=== PATIENT | female | born 2000 | race Caucasian/White ===

== ENCOUNTER 2018-03-26 22:04 | Inpatient (IN) ==
[2018-03-26] MEDS ORDERED: TORADOL 30 MG VIAL ONE (23:34)
[2018-03-26] MEDS ORDERED: TORADOL 30 MG VIAL IVP ONE (23:35)
[2018-03-26] MEDS ORDERED: ZOFRAN INJ 4 MG VIAL IVP ONE (23:38)
--- NOTE | 2018-03-26 23:42 | DR.GENAD ---
HPI Time Seen Time Seen by Provider: 03/26/18 23:27 PCP Primary Care Physician: NILMA Complaint/Symptoms Chief Complaint Doctors Comments: Patient had a cholecystectomy 20 days ago in [place], had follow up with surgeon secondary to abdominal pain but f/o was negative. She admits to nausea and abdominal pain since. Pain level 10/10, sharp. Chief Complaint:: ABD PAIN , PT 3 WEEKS POST OP GALLBLADDER REMOVAL Self Treatment fo Chief Complaint: NONE Source History Provided: Patient Mode of Arrival Mode of Arrival: Ambulatory Timing Onset of Chief Complaint: 03/26/18 PMH PMH Past Medical History: No Past Surgical History: Yes Surgical History: and Cholecystectomy Past Surgical History Comment: RIGHT OVARY Family History History of Family Medical Conditions: No Social History Does patient currently use any type of tobacco product: Yes Have you used tobacco products in the last 12 months: Yes Type of Tobacco Use: Cigarettes Alcohol Use: None Do you use any recreational Drugs:: No Lives With: Mom Lives Where: Home infectious screening In the last 2 months have you had wt loss of >10#?: NO Have you had fever, night sweats or hemotysis?: No Have you traveled outside the country in the last 6 months?: No Isolation: Standard PE Vital Signs Vitals: Temperature 98.4 F Pulse Rate [Apical] 103 Pulse Rate 120 Respiratory Rate 18 Blood Pressure [Right Arm] 129/71 Blood Pressure [Left Arm] 127/72 Blood Pressure 137/79 O2 Sat by Pulse Oximetry 93 General General Appearance: Alert and In Distress Eyes Eye exam: Normal Appearance, PERRL and EOMI ENT ENT Exam: Normal Exam, Normal Oropharynx and Mucous Membranes Moist External Ear Exam: Normal External Inspection TM/Canal Exam: Bilateral: Normal Nose Exam: Normal Nose Exam Throat Exam: Normal Inspection, Tonsillar Erythema, Tonsillomegaly, Tonsillar Exudate, R Peritonsillar Mass, L Peritonsillar Mass, Muffled Voice and Other Neck Neck Exam: Normal Inspection Chest Chest Inspection: Normal Inspection Respiratory Respiratory Exam: Normal Lung Sounds Bilat Respiratory Exam: Bilateral: Clear to Auscultation and Bilateral: Rhonchi Cardiovascular Cardiovascular Exam: Tachycardia Abdominal Exam Abdominal Exam: Normal Inspection, Soft, Tenderness and Hyperactive Bowel Sounds Abdominal Tenderness: LLQ, Epigastrium and Diffuse Extremities Extremities Exam: Normal Inspection and Full ROM Back Back Exam: Normal Inspection Neurologic Neurological Exam: Alert, Oriented X3, CN II-XII Intact and Normal Gait Psychiatric Psychiatric Exam: Normal Affect and Anxious Skin Skin Exam: Warm and Dry COURSE Consultation Called: 02:30 Consultation Comments: Dr. Pham agreed to admit for further evaluation and treatment ROR Labs Reviewed Laboratory Results Reviewed?: Yes Result Diagrams: 03/28/18 06:03 03/28/18 06:03 Laboratory: 03/27/18 15:28 Aspirate Gram Stain - Final WBC 10.4 X10^3/uL (3.6-10.0) H 03/28/18 06:03 RBC 3.00 X10^6/uL (3.5-5.4) L 03/28/18 06:03 Hgb 7.7 g/dL (12.0-16.0) L 03/28/18 06:03 Hct 23.1 % (36.0-47.0) L 03/28/18 06:03 MCV 76.9 fL (80.0-100.0) L 03/28/18 06:03 MCH 25.7 pg (27.0-34.0) L 03/28/18 06:03 MCHC 33.4 g/dL (33.0-35.0) 03/28/18 06:03 RDW 17.6 % (11.6-16.5) H 03/28/18 06:03 Plt Count 391 X10^3/uL (150.0-450.0) 03/28/18 06:03 Plt Count Comment Adequate (ADEQUATE) 03/28/18 06:03 MPV 9.6 fL (7.4-11.0) 03/28/18 06:03 Neut % (Auto) 61.6 % (42.0-75.0) 03/28/18 06:03 Lymph % (Auto) 27.6 % (21.0-51.0) 03/28/18 06:03 [place] % (Auto) 7.2 % (0.0-13.0) 03/28/18 06:03 Eos % (Auto) 2.9 % (0.9-2.9) 03/28/18 06:03 Baso % (Auto) 0.7 % (0.2-1.0) 03/28/18 06:03 Neut # (Auto) 6.4 x10^3/uL (2.2-4.8) H 03/28/18 06:03 Lymph # (Auto) 2.9 X10^3/uL (1.3-2.9) 03/28/18 06:03 [place] # (Auto) 0.7 x10^3/uL (0.3-0.8) 03/28/18 06:03 Eos # (Auto) 0.3 x10^3/uL (0.0-0.2) H 03/28/18 06:03 Baso # (Auto) 0.1 X10^3/uL (0.0-0.1) 03/28/18 06:03 Absolute Nucleated RBC 0.0 /100WBC 03/28/18 06:03 Plt Morphology Comment Normal (NORMAL) 03/28/18 06:03 RBC Morphology Abnormal (NORMAL) A 03/28/18 06:03 Hypochromasia Slight A 03/28/18 06:03 Microcytosis Slight A 03/28/18 06:03 Sodium 139 mmol/L (136-145) 03/28/18 06:03 Corrected Sodium TNP 03/28/18 06:03 Potassium 3.5 mmol/L (3.5-5.1) 03/28/18 06:03 Chloride 105 mmol/L (98-107) 03/28/18 06:03 Carbon Dioxide 26.3 mmol/L (21-32) 03/28/18 06:03 BUN 7 mg/dL (7-18) 03/28/18 06:03 Creatinine 0.51 mg/dL (0.55-1.02) L 03/28/18 06:03 Est GFR (MDRD) Af Amer > 60 (>60) 03/28/18 06:03 Est GFR (MDRD) Non-Af > 60 (>60) 03/28/18 06:03 Glucose 87 mg/dL (65-99) 03/28/18 06:03 Calcium 8.1 mg/dL (8.5-10.1) L 03/28/18 06:03 Corrected Calcium 9.8 mg/dL (8.5-10.1) 03/28/18 06:03 Total Bilirubin 0.50 mg/dL (0.2-1.0) 03/28/18 06:03 AST 25 Units/L (15-37) 03/28/18 06:03 ALT 23 Units/L (12-78) 03/28/18 06:03 Alkaline Phosphatase 306 Units/L (45-150) H 03/28/18 06:03 C-Reactive Protein > 250.00 mg/L (0-3.0) H 03/26/18 23:42 Total Protein 5.9 g/dL (6.4-8.2) L 03/28/18 06:03 Albumin 1.9 g/dL (3.4-5.0) L 03/28/18 06:03 Globulin 4.0 g/dL (2.5-4.5) 03/28/18 06:03 Albumin/Globulin Ratio 0.5 Ratio (1.1-2.1) L 03/28/18 06:03 Amylase 22 Units/L (25-115) L 03/26/18 23:42 Lipase 64 Units/L (73-393) L 03/26/18 23:42 Other Results Comments: CT Abd/Pel:Multilocal low density loculated collections around the liver and gallbladder fossa with history of recent cholecystectomy are concerning for biloma, abscess and /or bile leak. 2.More hazy appearnace to the peritoneum M. omentum and non organized hyperdense fluid in in the pelvis could also reflect bile leak or hemorrhage. Active bleeding into the abdomen/ peritoneal cavity is possible. Follow up to exclude underlying neoplasia or ovarian source of hemorrhage is recommended as well. XRAY XRAY Findings: See above
[2018-03-26] MEDS ORDERED: NS 1000 ML 1,000 ML IV SCH (23:45)
[2018-03-26] MEDS ORDERED: ZOFRAN INJ 4 MG VIAL ONE (23:55)
[2018-03-26 23:56] LABS: BASOPHILS # (AUTO) 0.1 X10^3/uL (0.0-0.1); BASOPHILS % (AUTO) 0.5 % (0.2-1.0); EOSINOPHILS # (AUTO) 0.1 x10^3/uL (0.0-0.2); EOSINOPHILS % (AUTO) 0.5 % (0.9-2.9); HEMATOCRIT 29.2 % (36.0-47.0); HEMOGLOBIN 9.7 g/dL (12.0-16.0); LYMPHOCYTES # (AUTO) 2.8 X10^3/uL (1.3-2.9); MEAN CORPUSCULAR HEMOGLOBIN 25.4 pg (27.0-34.0); MEAN CORPUSCULAR HGB CONC 33.2 g/dL (33.0-35.0); MEAN CORPUSCULAR VOLUME 76.4 fL (80.0-100.0); MEAN PLATELET VOLUME 9.4 fL (7.4-11.0); MONOCYTES # (AUTO) 1.4 x10^3/uL (0.3-0.8); MONOCYTES % (AUTO) 7.8 % (0.0-13.0); NEUTROPHILS % (AUTO) 76.2 % (42.0-75.0); PLATELET COUNT 474 X10^3/uL (150.0-450.0); RED BLOOD COUNT 3.82 X10^6/uL (3.5-5.4); RED CELL DISTRIBUTION WIDTH 17.5 % (11.6-16.5); WHITE BLOOD COUNT 18.4 X10^3/uL (3.6-10.0)
[2018-03-27 00:05] LABS: ALANINE AMINOTRANSFERASE 12 Units/L (12-78); ALBUMIN 2.7 g/dL (3.4-5.0); ALKALINE PHOSPHATASE 136 Units/L (45-150); AMYLASE 22 Units/L (25-115); ASPARTATE AMINO TRANSFERASE < 6 Units/L (15-37); BLOOD UREA NITROGEN 10 mg/dL (7-18); CALCIUM 8.7 mg/dL (8.5-10.1); CARBON DIOXIDE 25.6 mmol/L (21-32); CHLORIDE 101 mmol/L (98-107); COR CA(FOR HYPOALB) 9.7 mg/dL (8.5-10.1); COR NA(FOR HYPERGLY) 136 mmol/L (136-145); CREATININE 0.68 mg/dL (0.55-1.02); LIPASE 64 Units/L (73-393); SODIUM 136 mmol/L (136-145); TOTAL PROTEIN 7.3 g/dL (6.4-8.2); eGFR NON BLACK RACES > 60 (>60)
[2018-03-27] MEDS ORDERED: MORPHINE SULFATE INJ 4 MG IVP ONE (00:30)
[2018-03-27] MEDS ORDERED: MORPHINE SULFATE INJ 4 MG ONE (00:36)
[2018-03-27] MEDS ORDERED: NS 100 ML IV 100 ML IV ONE ×2 (00:37→02:47)
[2018-03-27 01:01] LABS: PLATELET MORPHOLOGY COMMENT NORMAL (NORMAL)
--- NOTE | 2018-03-27 01:33 | CT ---
CT abdomen and pelvis with contrast Indication: Left-sided abdominal pain for 4 weeks Technique: Helical images through the abdomen and pelvis after IV contrast. Coronal and sagittal refo rmats provided. Comparison: None available. Findings: Limited images through the lower chest shows scarring in the left lung base with trace pleu ral fluid review of bone windows shows no destructive osseous lesion. Abdomen: Loculated fluid is seen adjacent to the left lobe of the liver, measuring 4.6 x 10.1 cm on a xial image 24. There is small fluid around the dome of the liver and around the spleen. Fluid tracks along the vivien hepatis with cholecystectomy clips noted. There is haziness to the peritoneum om and omentum, with moderate fluid in the pelvis. Vasculature is normal. The kidneys are normal. No large l iver lesion seen. The spleen, pancreas and adrenal glands are normal. Stomach shows fluid adjacent to the lesser curvature, but is otherwise normal. Small bowel appears relatively normal. There is diffu se mild wall thickening of the colon are particularly at the cecum, possibly reactive. Appendix is no rmal. Pelvis: The urinary bladder and rectum are normal. Uterus is normal. Left ovarian cyst noted Impression: 1. Multifocal low-density loculated collections around the liver and gallbladder fossa with history o f recent cholecystectomy are concerning for biloma, abscesses and/or bile leak. 2. More hazy appearance to the peritoneum M, omentum and non organized hyperdense fluid in the pelvis could also reflect bile leak or hemorrhage. Active bleeding into the abdomen/peritoneal cavity is po ssible. Follow-up to exclude underlying neoplasia or ovarian source of hemorrhage is recommended as w ell THE AVAILABILITY OF THE REPORT AND FINDINGS WERE COMMUNICATED TO Dr. Wright by Dr. Vides on 8 Time called 1:30 a.m. Reported By:
[2018-03-27] MEDS ORDERED: MORPHINE SULFATE INJ 4 MG IVP PRN (02:54)
[2018-03-27] MEDS ORDERED: ZOSYN VIAL 3.375 GRAMS IV SCH (03:00)
[2018-03-27] MEDS: NS 1000 ML 1,000 ML IV SCH ×4 (04:24→22:13)
[2018-03-27 06:36] LABS: BASOPHILS # (AUTO) 0.1 X10^3/uL (0.0-0.1); BASOPHILS % (AUTO) 0.4 % (0.2-1.0); EOSINOPHILS # (AUTO) 0.2 x10^3/uL (0.0-0.2); EOSINOPHILS % (AUTO) 1.3 % (0.9-2.9); HEMATOCRIT 27.2 % (36.0-47.0); LYMPHOCYTES # (AUTO) 3.6 X10^3/uL (1.3-2.9); LYMPHOCYTES % (AUTO) 21.8 % (21.0-51.0); MEAN CORPUSCULAR HEMOGLOBIN 25.5 pg (27.0-34.0); MEAN CORPUSCULAR VOLUME 77.2 fL (80.0-100.0); MEAN PLATELET VOLUME 9.7 fL (7.4-11.0); MONOCYTES # (AUTO) 1.2 x10^3/uL (0.3-0.8); MONOCYTES % (AUTO) 7.4 % (0.0-13.0); NEUTROPHILS # (AUTO) 11.3 x10^3/uL (2.2-4.8); NEUTROPHILS % (AUTO) 69.1 % (42.0-75.0); PLATELET COUNT 401 X10^3/uL (150.0-450.0); RED BLOOD COUNT 3.52 X10^6/uL (3.5-5.4); RED CELL DISTRIBUTION WIDTH 17.4 % (11.6-16.5); WHITE BLOOD COUNT 16.3 X10^3/uL (3.6-10.0)
[2018-03-27 06:41] LABS: ALANINE AMINOTRANSFERASE 16 Units/L (12-78); ALBUMIN 2.3 g/dL (3.4-5.0); ALKALINE PHOSPHATASE 156 Units/L (45-150); ASPARTATE AMINO TRANSFERASE 19 Units/L (15-37); BLOOD UREA NITROGEN 10 mg/dL (7-18); CALCIUM 8.3 mg/dL (8.5-10.1); CARBON DIOXIDE 24.7 mmol/L (21-32); CHLORIDE 104 mmol/L (98-107); COR CA(FOR HYPOALB) 9.7 mg/dL (8.5-10.1); CREATININE 0.52 mg/dL (0.55-1.02); SODIUM 137 mmol/L (136-145); TOTAL PROTEIN 6.5 g/dL (6.4-8.2); eGFR NON BLACK RACES > 60 (>60)
[2018-03-27 06:55] LABS: HYPOCHROMASIA SLIGHT; PLATELET MORPHOLOGY COMMENT NORMAL (NORMAL)
[2018-03-27] MEDS: ZOFRAN INJ 4 MG VIAL IVP PRN ×2 (07:14→14:23)
[2018-03-27] MEDS: MORPHINE SULFATE INJ 4 MG IVP PRN ×5 (08:20→22:12)
[2018-03-27] MEDS: FLAGYL IV PREMIX 500 MG BAG 500 MG/100 ML BAG IV SCH ×3 (08:26→20:44)
[2018-03-27] MEDS: ZOSYN VIAL 3.375 GRAMS 3.375 G in NS 100 ML IV + SPIKE MINIBAG* 100 ML IV SCH ×3 (11:08→22:13)
[2018-03-27] MEDS ORDERED: VERSED ONE ×2 (14:10→15:36)
[2018-03-27] MEDS ORDERED: DIPRIVAN VIAL ONE ×2 (14:10→15:36)
[2018-03-27] MEDS ORDERED: LR 1000 ML IV 1,000 ML IV ONE (14:57)
[2018-03-27] MEDS ORDERED: FENTANYL INJ 100 mcg ONE (14:58)
[2018-03-27 15:13] VITALS: BMI 33.0
--- NOTE | 2018-03-27 16:13 | CT ---
CT abdomen without contrast Indication: Follow-up abnormal CT examination, preoperative planning Comparison: 03/27/2018 at 12:41 a.m. Technique: 5 mm axial images of the abdomen performed without IV contrast administration. Coronal and sagittal reformatted images were provided. Findings: Small left-sided pleural effusion with compressive atelectasis is noted within the left lower lobe. S george previous examination there is increasing size of subcapsular or fluid collection within the late ral hepatic segment measuring approximately 13.2 cm in greatest dimension. Increasing fluid also trac ks anterior to the right hepatic lobe. Ill-defined stranding and nodularity is noted within the anter ior peritoneal cavity. Small amount of fluid is noted inferior to the liver which is non localizing. Prior cholecystectomy is noted. The spleen, pancreas and adrenal glands are unremarkable. Contrast ma terial is noted within the otherwise normal E renal collecting system. Upper GI tract demonstrates no evidence of mass or obstruction. No acute osseous abnormality. Impression: Increasing size of loculated fluid collections within the subcapsular left lateral hepatic segment wi th increased fluid tracking along the anterior margin of the right hepatic lobe again concerning for complex fluid collection including abscess or biloma. Peritoneal stranding within the anterior perito neum is suspicious for a peritonitis. Small left-sided pleural effusion. Reported By:
[2018-03-28] MEDS: MORPHINE SULFATE INJ 4 MG IVP PRN ×7 (02:18→21:45)
[2018-03-28] MEDS: FLAGYL IV PREMIX 500 MG BAG 500 MG/100 ML BAG IV SCH ×4 (03:01→20:48)
[2018-03-28] MEDS: NS 1000 ML 1,000 ML IV SCH ×4 (05:24→20:48)
[2018-03-28] MEDS ORDERED: NS 100 ML IV 100 ML IV ONE (05:52)
[2018-03-28] MEDS ORDERED: ZOSYN VIAL 3.375 GRAMS IV ONE (05:52)
[2018-03-28] MEDS: ZOSYN VIAL 3.375 GRAMS 3.375 G in NS 100 ML IV + SPIKE MINIBAG* 100 ML IV SCH ×3 (05:59→21:45)
[2018-03-28 06:33] LABS: ALANINE AMINOTRANSFERASE 23 Units/L (12-78); ALBUMIN 1.9 g/dL (3.4-5.0); ALKALINE PHOSPHATASE 306 Units/L (45-150); ASPARTATE AMINO TRANSFERASE 25 Units/L (15-37); BLOOD UREA NITROGEN 7 mg/dL (7-18); CALCIUM 8.1 mg/dL (8.5-10.1); CARBON DIOXIDE 26.3 mmol/L (21-32); CHLORIDE 105 mmol/L (98-107); COR CA(FOR HYPOALB) 9.8 mg/dL (8.5-10.1); CREATININE 0.51 mg/dL (0.55-1.02); SODIUM 139 mmol/L (136-145); TOTAL PROTEIN 5.9 g/dL (6.4-8.2); eGFR NON BLACK RACES > 60 (>60)
[2018-03-28 06:37] LABS: BASOPHILS # (AUTO) 0.1 X10^3/uL (0.0-0.1); BASOPHILS % (AUTO) 0.7 % (0.2-1.0); EOSINOPHILS # (AUTO) 0.3 x10^3/uL (0.0-0.2); EOSINOPHILS % (AUTO) 2.9 % (0.9-2.9); HEMATOCRIT 23.1 % (36.0-47.0); HEMOGLOBIN 7.7 g/dL (12.0-16.0); LYMPHOCYTES # (AUTO) 2.9 X10^3/uL (1.3-2.9); LYMPHOCYTES % (AUTO) 27.6 % (21.0-51.0); MEAN CORPUSCULAR HEMOGLOBIN 25.7 pg (27.0-34.0); MEAN CORPUSCULAR HGB CONC 33.4 g/dL (33.0-35.0); MEAN CORPUSCULAR VOLUME 76.9 fL (80.0-100.0); MEAN PLATELET VOLUME 9.6 fL (7.4-11.0); MONOCYTES # (AUTO) 0.7 x10^3/uL (0.3-0.8); MONOCYTES % (AUTO) 7.2 % (0.0-13.0); NEUTROPHILS # (AUTO) 6.4 x10^3/uL (2.2-4.8); NEUTROPHILS % (AUTO) 61.6 % (42.0-75.0); PLATELET COUNT 391 X10^3/uL (150.0-450.0); RED CELL DISTRIBUTION WIDTH 17.6 % (11.6-16.5); WHITE BLOOD COUNT 10.4 X10^3/uL (3.6-10.0)
[2018-03-28 06:53] LABS: HYPOCHROMASIA SLIGHT; MICROCYTOSIS SLIGHT; PLATELET MORPHOLOGY COMMENT NORMAL (NORMAL)
[2018-03-28] MEDS: ZOFRAN INJ 4 MG VIAL IVP PRN ×3 (08:47→21:45)
[2018-03-28] MEDS: K-DUR TAB 20 MEQ PO SCH (10:41)
[2018-03-28] MEDS ORDERED: NS 100 ML IV 100 ML with VENOFER 100 MG IV NR ×2 (11:00)
[2018-03-28] MEDS: TESSALON PERLES PO SCH ×2 (14:47→21:46)
[2018-03-28 16:40] LABS: HEMATOCRIT 21.3 % (36.0-47.0); HEMOGLOBIN 7.1 g/dL (12.0-16.0)
[2018-03-29] MEDS: MORPHINE SULFATE INJ 4 MG IVP PRN ×3 (00:41→06:43)
[2018-03-29] MEDS: NS 1000 ML 1,000 ML IV SCH ×2 (01:11→08:46)
[2018-03-29] MEDS: FLAGYL IV PREMIX 500 MG BAG 500 MG/100 ML BAG IV SCH ×2 (02:51→08:46)
[2018-03-29] MEDS: ZOFRAN INJ 4 MG VIAL IVP PRN (03:26)
[2018-03-29] MEDS: TESSALON PERLES PO SCH (05:47)
[2018-03-29] MEDS: ZOSYN VIAL 3.375 GRAMS 3.375 G in NS 100 ML IV + SPIKE MINIBAG* 100 ML IV SCH (05:47)
[2018-03-29 06:07] LABS: BASOPHILS # (AUTO) 0.1 X10^3/uL (0.0-0.1); BASOPHILS % (AUTO) 0.7 % (0.2-1.0); EOSINOPHILS # (AUTO) 0.3 x10^3/uL (0.0-0.2); EOSINOPHILS % (AUTO) 3.8 % (0.9-2.9); HEMATOCRIT 21.2 % (36.0-47.0); HEMOGLOBIN 7.1 g/dL (12.0-16.0); LYMPHOCYTES # (AUTO) 2.4 X10^3/uL (1.3-2.9); MEAN CORPUSCULAR HEMOGLOBIN 25.8 pg (27.0-34.0); MEAN CORPUSCULAR HGB CONC 33.6 g/dL (33.0-35.0); MEAN CORPUSCULAR VOLUME 76.8 fL (80.0-100.0); MEAN PLATELET VOLUME 9.7 fL (7.4-11.0); MONOCYTES # (AUTO) 0.7 x10^3/uL (0.3-0.8); MONOCYTES % (AUTO) 7.9 % (0.0-13.0); NEUTROPHILS # (AUTO) 5.1 x10^3/uL (2.2-4.8); NEUTROPHILS % (AUTO) 59.6 % (42.0-75.0); PLATELET COUNT 343 X10^3/uL (150.0-450.0); RED BLOOD COUNT 2.76 X10^6/uL (3.5-5.4); RED CELL DISTRIBUTION WIDTH 17.5 % (11.6-16.5); WHITE BLOOD COUNT 8.6 X10^3/uL (3.6-10.0)
[2018-03-29 06:30] LABS: ALANINE AMINOTRANSFERASE 18 Units/L (12-78); ALBUMIN 1.9 g/dL (3.4-5.0); ALKALINE PHOSPHATASE 336 Units/L (45-150); ASPARTATE AMINO TRANSFERASE 14 Units/L (15-37); BLOOD UREA NITROGEN 4 mg/dL (7-18); CALCIUM 8.1 mg/dL (8.5-10.1); CARBON DIOXIDE 26.8 mmol/L (21-32); CHLORIDE 104 mmol/L (98-107); COR CA(FOR HYPOALB) 9.8 mg/dL (8.5-10.1); CREATININE 0.47 mg/dL (0.55-1.02); SODIUM 139 mmol/L (136-145); TOTAL PROTEIN 5.8 g/dL (6.4-8.2); eGFR NON BLACK RACES > 60 (>60)
[2018-03-29 07:03] LABS: ANISOCYTOSIS SLIGHT; HYPOCHROMASIA SLIGHT; PLATELET MORPHOLOGY COMMENT NORMAL (NORMAL)
[2018-03-29] MEDS ORDERED: PERCOCET TAB 5/325 MG PO PRN ×2 (08:17→09:00)
[2018-03-29] MEDS ORDERED: DILAUDID INJ IVP PRN (08:18)
[2018-03-29] MEDS: K-DUR TAB 20 MEQ PO SCH (08:46)
--- NOTE | 2018-03-29 08:58 | DR.PROGNOT ---
Hospital Progress Notes - Progress Note for Day of: Progress Note Date: 03/29/18 - Chief Complaint Chief Complaint: still c/o upper abdominalpain and Lt shoulder pain ..no nausea or vomiting . Hgb is low ( vaginal bleeding and recent dilevary and complicated surgery ). moderate elevated Alk Phos with normal bilirubin . afebrile - Past Medical Family Social History Past Med/Fam/Surg Hx: No changes since H&P Allergies: Allergies No Known Drug Allergies Allergy (Verified 03/26/18 22:30) - Review Of Systems ROS: No change since H&P - Vital Signs Vital Signs: Temperature 97.6 F Pulse Rate [Apical] 92 Pulse Rate 101 Respiratory Rate 23 Blood Pressure [Right Arm] 129/79 Blood Pressure [Left Arm] 126/71 Blood Pressure 137/79 O2 Sat by Pulse Oximetry 99 - Physical Exam Oriented: Normal Eyes: Other (pale conjunctiva) Ear: Normal Nose: Normal Throat: Normal Respiratory: Normal : Normal (soft abdomen with epigastric tenderness.) GI:Auscultation: Normal GI: Tenderness: Epigastric Speech Pattern: Clear, Appropriate - Laboratory and Diagnostics Result Diagrams: 03/29/18 05:08 03/29/18 05:08 Labs: 03/27/18 15:28 Aspirate Gram Stain - Final 03/27/18 15:28 Aspirate Wound Culture - Preliminary Laboratory WBC 8.6 X10^3/uL (3.6-10.0) 03/29/18 05:08 RBC 2.76 X10^6/uL (3.5-5.4) L 03/29/18 05:08 Hgb 7.1 g/dL (12.0-16.0) L 03/29/18 05:08 Hct 21.2 % (36.0-47.0) L 03/29/18 05:08 MCV 76.8 fL (80.0-100.0) L 03/29/18 05:08 MCH 25.8 pg (27.0-34.0) L 03/29/18 05:08 MCHC 33.6 g/dL (33.0-35.0) 03/29/18 05:08 RDW 17.5 % (11.6-16.5) H 03/29/18 05:08 Plt Count 343 X10^3/uL (150.0-450.0) 03/29/18 05:08 Plt Count Comment Adequate (ADEQUATE) 03/29/18 05:08 MPV 9.7 fL (7.4-11.0) 03/29/18 05:08 Neut % (Auto) 59.6 % (42.0-75.0) 03/29/18 05:08 Lymph % (Auto) 28.0 % (21.0-51.0) 03/29/18 05:08 [place] % (Auto) 7.9 % (0.0-13.0) 03/29/18 05:08 Eos % (Auto) 3.8 % (0.9-2.9) H 03/29/18 05:08 Baso % (Auto) 0.7 % (0.2-1.0) 03/29/18 05:08 Neut # (Auto) 5.1 x10^3/uL (2.2-4.8) H 03/29/18 05:08 Lymph # (Auto) 2.4 X10^3/uL (1.3-2.9) 03/29/18 05:08 [place] # (Auto) 0.7 x10^3/uL (0.3-0.8) 03/29/18 05:08 Eos # (Auto) 0.3 x10^3/uL (0.0-0.2) H 03/29/18 05:08 Baso # (Auto) 0.1 X10^3/uL (0.0-0.1) 03/29/18 05:08 Absolute Nucleated RBC 0.0 /100WBC 03/29/18 05:08 Plt Morphology Comment Normal (NORMAL) 03/29/18 05:08 RBC Morphology Abnormal (NORMAL) A 03/29/18 05:08 Hypochromasia Slight A 03/29/18 05:08 Anisocytosis Slight A 03/29/18 05:08 Microcytosis Slight A 03/28/18 06:03 Sodium 139 mmol/L (136-145) 03/29/18 05:08 Corrected Sodium TNP 03/29/18 05:08 Potassium 3.4 mmol/L (3.5-5.1) L 03/29/18 05:08 Chloride 104 mmol/L (98-107) 03/29/18 05:08 Carbon Dioxide 26.8 mmol/L (21-32) 03/29/18 05:08 BUN 4 mg/dL (7-18) L 03/29/18 05:08 Creatinine 0.47 mg/dL (0.55-1.02) L 03/29/18 05:08 Est GFR (MDRD) Af Amer > 60 (>60) 03/29/18 05:08 Est GFR (MDRD) Non-Af > 60 (>60) 03/29/18 05:08 Glucose 88 mg/dL (65-99) 03/29/18 05:08 Calcium 8.1 mg/dL (8.5-10.1) L 03/29/18 05:08 Corrected Calcium 9.8 mg/dL (8.5-10.1) 03/29/18 05:08 Total Bilirubin 0.50 mg/dL (0.2-1.0) 03/29/18 05:08 AST 14 Units/L (15-37) L 03/29/18 05:08 ALT 18 Units/L (12-78) 03/29/18 05:08 Alkaline Phosphatase 336 Units/L (45-150) H 03/29/18 05:08 C-Reactive Protein > 250.00 mg/L (0-3.0) H 03/26/18 23:42 Total Protein 5.8 g/dL (6.4-8.2) L 03/29/18 05:08 Albumin 1.9 g/dL (3.4-5.0) L 03/29/18 05:08 Globulin 3.9 g/dL (2.5-4.5) 03/29/18 05:08 Albumin/Globulin Ratio 0.5 Ratio (1.1-2.1) L 03/29/18 05:08 Amylase 22 Units/L (25-115) L 03/26/18 23:42 Lipase 64 Units/L (73-393) L 03/26/18 23:42 - Assessment and Plan 1: abdominal abscess ,s/p lap difficult becca. possible bile leak . s/p drainage. anemia .recent dilevary and complicated surgery . will advance diet. transfuse if it drops further. for HIDA scan in am to r/o bile leak
[2018-03-29] MEDS ORDERED: NS 100 ML IV 100 ML with VENOFER 100 MG IV NR ×2 (09:00)
[2018-03-29 12:26] VITALS: BP 129/66
--- NOTE | 2018-03-29 15:22 | RAD ---
Indication: Knee pain Exam: Right knee series. Technique: AP and lateral views. Findings: There is minimal joint space narrowing medially in the knee. No fracture or dislocation is seen. The patella is intact. Impression: Mild joint space narrowing medially in the knee with no acute bony abnormality. Reported By:
== END 2018-03-29 12:58 | disposition left against medical advice (07) | DRG 391 ==
LOC: ER 22:19 → ICU 03-27 02:43
PROVIDERS: ADMIT Obstetrics & Gynecology Obstetrics; ATTEND Obstetrics & Gynecology Obstetrics
DX: R10.84 Generalized abdominal pain; E87.6 Hypokalemia; K65.1 Peritoneal abscess; R53.1 Weakness; Z90.49 Acquired absence of other specified parts of digestive tract; R79.82 Elevated C-reactive protein (CRP); E86.0 Dehydration; T81.4XXA Infection following a procedure, initial encounter; D72.828 Other elevated white blood cell count
CPT/HCPCS: 36415; 73564; 74150; 74177; 80053; 82150; 83690; 85014; 85018; 85025; 86140; 87070; 87075; 87205; 96365; 96374; 96375; 99283; 99284; A4222; S0030; J1756; J1885; J2250; J2270; J2405; J2543; J2704; J3010; J7030; J7050; J7120